=== PATIENT | male | born 1995 | race Caucasian/White ===

== ENCOUNTER 2016-12-15 21:59 | Emergency (ER) | payer OTHER ==
[2016-12-15 22:05] VITALS: BP 140/85; PULSE 110; TEMP 98; BMI 18.4
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
[2016-12-15] MEDS ORDERED: KETOROLAC TROMETHAMINE 60 MG/2 ML VIAL IM ONE (23:19)
[2016-12-15] MEDS ORDERED: KETOROLAC TROMETHAMINE 60 MG/2 ML VIAL ONE (23:32)
== END 2016-12-15 23:36 | disposition home or self-care (01) ==
LOC: FER 21:59
PROC: 3E0233Z Introduction of Anti-inflammatory into Muscle, Percutaneous Approach (ICD-10-PCS; principal; 2016-12-15)
DX: S16.1XXA Strain of muscle, fascia and tendon at neck level, initial encounter (principal); F17.210 Nicotine dependence, cigarettes, uncomplicated; V43.52XA Car driver injured in collision with other type car in traffic accident, initial encounter; Y93.89 Activity, other specified; Y92.410 Unspecified street and highway as the place of occurrence of the external cause; F32.9 Major depressive disorder, single episode, unspecified
CPT/HCPCS: 71020-TC; 72050-TC; 99282-25

== ENCOUNTER 2016-12-16 15:49 | Emergency (ER) | payer OTHER ==
[2016-12-16 15:57] VITALS: BP 118/85; PULSE 99; TEMP 98.3; BMI 18.4
[2016-12-16] MEDS ORDERED: IBUPROFEN 400 MG TABLET (FP) PO ONE ×2 (16:33→16:38)
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
== END 2016-12-16 18:30 | disposition home or self-care (01) ==
LOC: FER 15:49
DX: S06.0X9D Concussion with loss of consciousness of unspecified duration, subsequent encounter (principal); V43.52XD Car driver injured in collision with other type car in traffic accident, subsequent encounter; W22.10XD Striking against or struck by unspecified automobile airbag, subsequent encounter; Y93.89 Activity, other specified; Y92.414 Local residential or business street as the place of occurrence of the external cause; F32.9 Major depressive disorder, single episode, unspecified; F17.210 Nicotine dependence, cigarettes, uncomplicated
CPT/HCPCS: 70450-TC; 99283-25

== ENCOUNTER 2017-05-01 20:26 | Emergency (ER) | payer OTHER ==
[2017-05-01 20:42] VITALS: TEMP 97.9; BMI 18.4
[2017-05-01 21:02] LABS: MCH 30.2 pg (25.7-33.7); MEAN CELL VOLUME 91.5 fl (80-96); PLATELET COUNT 352 K/MM3 (134-434); RDW 13.3 % (11.9-15.9); WHITE BLOOD COUNT 29.1 K/mm3 (4.0-10.0)
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
[2017-05-01 21:32] LABS: ALBUMIN 4.5 g/dl (3.4-5.0); ANION GAP 18 (8-16); BILIRUBIN,TOTAL 1.1 mg/dL (0.2-1.0); CALCIUM 8.7 mg/dL (8.5-10.1); CO2 16 mmol/L (21-32); CREATININE 1.3 mg/dL (0.7-1.3); GLUCOSE,RANDOM 292 mg/dL (74-106); MAGNESIUM 2.3 mg/dL (1.8-2.4); SGOT/AST 14 U/L (15-37); SGPT/ALT 27 U/L (12-78); TOT PROT 8.4 g/dl (6.4-8.2)
[2017-05-01 21:33] LABS: ALK PHOS 84 U/L (45-117)
[2017-05-01 21:52] LABS: PLATELET ESTIMATE ADEQUATE (NORMAL); TOTAL CELLS COUNTED 100
[2017-05-01] MEDS ORDERED: SODIUM CHLORIDE 0.9% 500 ML INFUS.BAG IV ONE (22:13)
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
--- NOTE | 2017-05-02 00:52 | PDOC ---
*Physical Exam - Vital Signs Last Vital Signs Temp Pulse Resp BP Pulse Ox 97.9 F 121 H 20 123/83 95 05/01/17 20:26 05/01/17 20:26 05/01/17 20:26 05/01/17 20:26 05/01/17 20:26 ED Treatment Course - LABORATORY CBC & Chemistry Diagram: 05/01/17 20:43 05/01/17 20:43 - ADDITIONAL ORDERS Additional order review: Laboratory Results 05/01/17 20:43 Sodium 138 Potassium 5.0 D Chloride 104 Carbon Dioxide 16 L D Anion Gap 18 H BUN 13 Creatinine 1.3 D Creat Clearance w eGFR > 60 Random Glucose 292 H D Calcium 8.7 Magnesium 2.3 Total Bilirubin 1.1 H D AST 14 L D ALT 27 Alkaline Phosphatase 84 D Total Protein 8.4 H Albumin 4.5 05/01/17 20:43 RBC 4.99 MCV 91.5 MCHC 33.0 RDW 13.3 MPV 9.0 Neutrophils % No Result Required. Lymphocytes % No Result Required. - Medications Given in the ED: ED Medications Discontinued Medications Generic Name Dose Route Start Last Admin Trade Name Freq PRN Reason Stop Dose Admin Sodium Chloride 1,000 ml 05/01/17 22:13 05/01/17 22:34 Normal Saline - IV 05/01/17 22:14 1,000 ml ONCE ONE Administration *DC/Admit/Observation/Transfer Diagnosis at time of Disposition: Heroin use - Discharge Dispostion Disposition: HOME Condition at time of disposition: Improved - Patient Instructions Printed Discharge Instructions: DI for Drug Overdose in Adults Additional Instructions: Please refrain from heroin use [facility] is located on [address] [place] [address]
[2017-05-02 01:16] VITALS: BP 133/78; PULSE 889
[2017-05-02 01:22] LABS: URINE MARIJUANA THC POSITIVE ng/ml (CUTOFF=50)
--- NOTE | 2017-05-02 10:01 | EKG ---
Test Reason : Blood Pressure : / mmHG Vent. Rate : 110 BPM Atrial Rate : 110 BPM P-R Int : 164 ms QRS Dur : 104 ms QT Int : 362 ms P-R-T Axes : 077 118 061 degrees QTc Int : 489 ms SINUS TACHYCARDIA POSSIBLE LEFT ATRIAL ENLARGEMENT RIGHT AXIS DEVIATION ABNORMAL ECG WHEN COMPARED WITH ECG OF 12-MAR-2015 08:32, NO SIGNIFICANT CHANGE WAS FOUND Confirmed by SHANNON THOMPSON MD ([id number]) on 05/02/2017 10:01:25 AM Referred By: Confirmed By:SHANNON THOMPSON MD
== END 2017-05-02 01:18 | disposition home or self-care (01) ==
LOC: JER 20:26
DX: F11.10 Opioid abuse, uncomplicated (principal); F41.8 Other specified anxiety disorders; F17.210 Nicotine dependence, cigarettes, uncomplicated
CPT/HCPCS: 36415; 80053; 80307; 83735; 85025; 93005; 93010; 99285-25

== ENCOUNTER 2018-11-19 10:43 | Inpatient (IN) | payer OTHER ==
[2018-11-19 12:11] VITALS: BMI 19.1
--- NOTE | 2018-11-19 12:18 | HP ---
COWS - Scale Resting Pulse: 0= OK 80 or Below Sweatin= Chills/Flushing Restless Observation: 1= Difficult to Sit Still Pupil Size: 1= Pupils >than Normal Bone or Joint Aches: 2= Severe Diffuse Aches Runny Nose/ Eye Tearin= Runny Nose/Eyes GI Upset > 30mins: 2= Nausea/Diarrhea Tremor Observation: 2= Slight Tremor Visible Yawning Observation: 2= >3x During Session Anxiety or Irritability: 2=Irritable/Anxious Goose Flesh Skin: 0=Smooth Skin COWS Score: 15 CIWA Score - Admission Criteria [facility] Guidelines: Admission for Medically Managed Detox: Requires at least one of the followin. CIWA greater than 12 2. Seizures within the past 24 hours 3. Delirium tremens within the past 24 hours 4. Hallucinations within the past 24 hours 5. Acute intervention needed for co occurring medical disorder 6. Acute intervention needed for co occurring psychiatric disorder 7. Severe withdrawal that cannot be handled at a lower level of care (continued vomiting, continued diarrhea, abnormal vital signs) requiring intravenous medication and/or fluids 8. Admission ROS S - HPI Chief Complaint: i need help to stop using heroin and marijuana Allergies/Adverse Reactions: Allergies Allergy/AdvReac Type Severity Reaction Status Date / Time No Known Drug Allergies Allergy Verified 11/19/18 13:06 History of Present Illness: this 23 years old male with heroin dependence and cocaine abused,seeking detox, withdrawal symptom nicotine dependence 30 cigarette/day,nicotine replacement patch and gum weight loss bipolar disorder,anxiety and depression,no medication plan ofr rehab after detox Exam Limitations: No Limitations - Ebola screening Have you traveled outside of the country in the last 21 days: No Have you had contact with anyone from an Ebola affected area: No Do you have a fever: No - Review of Systems Constitutional: Chills, Loss of Appetite, Malaise, Night Sweats, Changes in sleep, Unintentional Wgt. Loss EENT: reports: Tearing, Nose Congestion Respiratory: reports: No Symptoms reported Cardiac: reports: No Symptoms Reported GI: reports: Diarrhea, Nausea, Poor Appetite : reports: No Symptoms Reported Integumentary: reports: Dryness Neuro: reports: Headache, Tremors Endocrine: reports: No Symptoms Reported Hematology: reports: No Symptoms Reported Psychiatric: reports: No Sypmtoms Reported, Judgement Intact, Mood/Affect Appropiate, Orientated x3, other (bipolar disorder,anxiety,depression) Other Systems: Reviewed and Negative Patient History - Patient Medical History Hx Anemia: No Hx Asthma: No Hx Chronic Obstructive Pulmonary Disease (COPD): No Hx Cancer: No Hx Cardiac Disorders: No Hx Congestive Heart Failure: No Hx Hypertension: No Hx Hypercholesterolemia: No Hx Pacemaker: No HX Cerebrovascular Accident: No Hx Seizures: No Hx Dementia: No Hx Diabetes: No Hx Gastrointestinal Disorders: No Hx Liver Disease: No Hx Genitourinary Disorders: No Hx Sexually Transmitted Disorders: No Hx Renal Disease (ESRD): No Hx Thyroid Disease: No Hx Human Immunodeficiency Virus (HIV): No (last 04/27 negative) Hx Hepatitis C: No Hx Depression: Yes Hx Suicide Attempt: Yes (cutter at age 18 years) Hx Bipolar Disorder: Yes (no med) Hx Schizophrenia: No Other Medical History: no suicidal,no homicidal - Patient Surgical History Past Surgical History: No - PPD History Previous Implant?: Yes Documented Results: Negative w/o proof Implanted On Prior [facility] Admission?: No PPD to be Administered?: Yes - Smoking Cessation Smoking history: Current every day smoker Have you smoked in the past 12 months: Yes Aproximately how many cigarettes per day: 20 Hx Chewing Tobacco Use: No Initiated information on smoking cessation: Yes 'Breaking Loose' booklet given: 11/19/18 - Substance & Tx. History Hx Alcohol Use: No Hx Substance Use: Yes Substance Use Type: Cocaine, Heroin Hx Substance Use Treatment: No - Substances abused Heroin Substance route: Injection Frequency: Daily Amount used: 5 bags Age of first use: 20 Date of last use: 11/18/18 Cocaine Other (specify): sniff Frequency: 1-3 times last 30 days Amount used: 20$ Age of first use: 16 Date of last use: 11/13/18 Family Disease History - Family Disease History Family Disease History: Other: Father (etoh), Mother (etoh) Admission Physical Exam [facility] - Vital Signs Vital Signs: Vital Signs - 24 hr 11/19/18 12:10 Temperature 97.8 F Pulse Rate 73 Respiratory 18 Rate Blood Pressure 110/75 - Physical General Appearance: Yes: Moderate Distress, Tremorous, Irritable, Sweating, Anxious HEENTM: Yes: Normal ENT Inspection, Pharynx Normal Respiratory: Yes: Lungs Clear, Normal Breath Sounds, No Respiratory Distress Neck: Yes: Within Normal Limits, Supple, Trachea in good position Breast: Yes: Within Normal Limits Cardiology: Yes: Within Normal Limits, Regular Rhythm, Regular Rate, S1, S2 Abdominal: Yes: Within Normal Limits, Normal Bowel Sounds, Non Tender, Flat, Soft Genitourinary: Yes: Within Normal Limits Back: Yes: Muscle Spasm Musculoskeletal: Yes: full range of Motion, Back pain, Joint Stiffness, Muscle Pain Extremities: Yes: Within Normal Limits, Normal Range of Motion, Tremors Neurological: Yes: experimental 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 II-XII NML intact, Alert, Motor Strength 5/5 Integumentary: Yes: Dry, Track Gonzalez Lymphatic: Yes: Within Normal Limits - Diagnostic (1) Opioid dependence with withdrawal Current Visit: Yes Status: Acute (2) Cocaine abuse Current Visit: Yes Status: Acute (3) Nicotine dependence Current Visit: Yes Status: Acute (4) Weight loss Current Visit: Yes Status: Acute (5) Bipolar disorder Current Visit: Yes Status: Acute (6) Insomnia secondary to depression with anxiety Current Visit: Yes Status: Acute Cleared for Admission [facility] - Detox or Rehab [facility] Level of Care: Medically Managed Detox Regimen/Protocol: Methadone Breathalyzer - Breathalyzer Breathalyzer: 0 Urine Drug Screen - Test Device Lot number: [id number] Expiration date: 08/10/20 - Control Is test valid?: Yes - Results Drug screen NEGATIVE: No Urine drug screen results: RILEY-Cocaine, FEN-Fentanyl, MOP-Opiates, OXY-Oxycodone Inpatient Rehab Admission - Rehab Decision to Admit Inpatient rehab admission?: No
[2018-11-19] MEDS ORDERED: cloNIDine HCL 0.1 MG TABLET PO PRN (12:37)
[2018-11-19] MEDS ORDERED: BISMUTH SUBSALICYLATE 524 MG/30 ML UD PO PRN (12:39)
[2018-11-19] MEDS ORDERED: MAG HYDROX/AL HYDROX/SIMETH 30 ML UNIT-DOSE CUP PO PRN (12:39)
[2018-11-19] MEDS ORDERED: MAGNESIUM HYDROX 2400MG/30ML ORAL SUSPENSION 30 ML CUP PO PRN (12:39)
[2018-11-19] MEDS ORDERED: ACETAMINOPHEN 325 MG TABLET (FP) PO PRN ×2 (12:39)
[2018-11-19] MEDS ORDERED: MENTHOL/PHENOL 1 EACH UD MM PRN (12:39)
[2018-11-19] MEDS ORDERED: hydrOXYzine PAMOATE 25 MG CAPSULE (FP) PO PRN (12:39)
[2018-11-19] MEDS ORDERED: MAGNESIUM CITRATE 300 ML BOTTLE PO PRN (12:39)
[2018-11-19] MEDS ORDERED: NICOTINE POLACRILEX 2 MG GUM BUC PRN (12:39)
[2018-11-19] MEDS ORDERED: METHADONE HCL 10 MG TABLET (FOR DETOX USE ONLY) PO ONE ×2 (14:00→23:00)
[2018-11-19] MEDS: METHOCARBAMOL 500 MG TABLET PO PRN (14:34)
[2018-11-19] MEDS: diazePAM 5 MG TABLET PO PRN ×2 (14:34→19:06)
[2018-11-19] MEDS: NICOTINE 21 MG/24 HOURS TOPICAL PATCH TD SCH (14:38)
[2018-11-19] MEDS: IBUPROFEN 400 MG TABLET (FP) PO PRN (19:06)
[2018-11-19] MEDS: THIAMINE HCL 100 MG TABLET (FP) PO SCH (22:27)
[2018-11-19] MEDS: MELATONIN 5 MG TABLETS PO PRN (22:27)
[2018-11-20] MEDS: IBUPROFEN 400 MG TABLET (FP) PO PRN (01:34)
[2018-11-20] MEDS: diazePAM 5 MG TABLET PO PRN ×5 (01:34→22:17)
[2018-11-20] MEDS: METHOCARBAMOL 500 MG TABLET PO PRN ×3 (07:03→22:17)
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
[2018-11-20 09:58] LABS: ALBUMIN 3.7 g/dl (3.4-5.0); BILIRUBIN,TOTAL 0.5 mg/dL (0.2-1); CALCIUM 9.1 mg/dL (8.5-10.1); CREATININE 0.8 mg/dL (0.55-1.3); POTASSIUM 4.6 mmol/L (3.5-5.1); TOT PROT 7.5 g/dl (6.4-8.2)
[2018-11-20] MEDS ORDERED: METHADONE HCL 10 MG TABLET (FOR DETOX USE ONLY) PO ONE (10:00)
[2018-11-20 10:05] LABS: HEMATOCRIT 39.3 % (35.4-49); HEMOGLOBIN 12.8 GM/dL (11.7-16.9); MCH 27.8 pg (25.7-33.7); MCHC 32.6 g/dl (32.0-35.9); MEAN CELL VOLUME 85.5 fl (80-96); MEAN PLT VOLUME 8.7 fl (7.5-11.1); PLATELET COUNT 196 K/MM3 (134-434); RDW 17.2 % (11.9-15.9); WHITE BLOOD COUNT 4.5 K/mm3 (4.0-10.0)
[2018-11-20] MEDS: PRENATAL VITAMINS W/ FOLIC ACID TABLET (FP) PO SCH (10:43)
[2018-11-20] MEDS: NICOTINE 21 MG/24 HOURS TOPICAL PATCH TD SCH (10:44)
[2018-11-20] MEDS: hydrOXYzine PAMOATE 50 MG CAPSULE (FP) PO PRN ×2 (10:46→22:17)
--- NOTE | 2018-11-20 14:39 | PN ---
BHS COWS - Scale Resting Pulse: 1= [place] 81-100 Sweatin= Chills/Flushing Restless Observation: 1= Difficult to Sit Still Pupil Size: 0= Normal to Room Light Bone or Joint Aches: 2= Severe Diffuse Aches Runny Nose/ Eye Tearin= None GI Upset > 30mins: 0= None Tremor Observation of Outstretched Hands: 0= None Yawning Observation: 1= 1-2x During Session Anxiety or Irritability: 1=Feels Anxious/Irritable Goose Flesh Skin: 3=Piloerection COWS Score: 10 BHS Progress Note (SOAP) Subjective: Body Aches, Interrupted Sleep, Poor Appetite, Anxious. Objective: PATIENT A & O X 3, OBSERVED AMBULATING ON UNIT UNASSISTED. IN NO ACUTE DISTRESS. 11/20/18 14:37 Vital Signs Temperature 96.4 F L 11/20/18 13:18 Pulse Rate 74 11/20/18 13:18 Respiratory Rate 18 11/20/18 13:18 Blood Pressure 132/78 11/20/18 13:18 O2 Sat by Pulse Oximetry (%) Laboratory Tests 11/20/18 11/20/18 11/20/18 07:40 07:40 07:40 WBC 4.5 RBC 4.60 Hgb 12.8 Hct 39.3 MCV 85.5 MCH 27.8 MCHC 32.6 RDW 17.2 H Plt Count 196 D MPV 8.7 Sodium 139 Potassium 4.6 Chloride 105 Carbon Dioxide 30 Anion Gap 5 L BUN 16 Creatinine 0.8 Est GFR (CKD-EPI)AfAm 145.93 Est GFR (CKD-EPI)NonAf 125.91 Random Glucose 86 Calcium 9.1 Total Bilirubin 0.5 AST 348 H ALT 475 H Alkaline Phosphatase 147 H Total Protein 7.5 Albumin 3.7 RPR Titer Nonreactive HIV 1&2 Antibody Screen HIV P24 Antigen 11/20/18 07:40 WBC RBC Hgb Hct MCV MCH MCHC RDW Plt Count MPV Sodium Potassium Chloride Carbon Dioxide Anion Gap BUN Creatinine Est GFR (CKD-EPI)AfAm Est GFR (CKD-EPI)NonAf Random Glucose Calcium Total Bilirubin AST ALT Alkaline Phosphatase Total Protein Albumin RPR Titer HIV 1&2 Antibody Screen Negative HIV P24 Antigen Negative LABS NOTED. Assessment: 11/20/18 14:38 WITHDRAWAL SYMPTOMS. ELEVATED LIVER ENZYMES. Plan: CONTINUE DETOX. INCREASE DAILY PO FLUID / WATER INTAKE. HFP ON 11/22/2018 FOR ELEAVTED ADMISSION AST, ALT, AND AP LEVELS.
--- NOTE | 2018-11-20 15:10 | EKG ---
Test Reason : Blood Pressure : / mmHG Vent. Rate : 065 BPM Atrial Rate : 065 BPM P-R Int : 130 ms QRS Dur : 100 ms QT Int : 416 ms P-R-T Axes : 000 115 069 degrees QTc Int : 432 ms NORMAL SINUS RHYTHM RIGHT AXIS DEVIATION POSSIBLE RIGHT VENTRICULAR HYPERTROPHY ABNORMAL ECG WHEN COMPARED WITH ECG OF 01-MAY-2017 21:09, VENT. RATE HAS DECREASED BY 45 BPM Confirmed by JAY PLUNKETT, SHANNON ([id number]) on 11/20/2018 3:10:08 PM Referred By: Confirmed By:SHANNON THOMPSON MD
[2018-11-20] MEDS: THIAMINE HCL 100 MG TABLET (FP) PO SCH (22:17)
[2018-11-21] MEDS: MELATONIN 5 MG TABLETS PO PRN (00:01)
--- NOTE | 2018-11-21 09:44 | PN ---
S COWS - Scale Resting Pulse: 0= ME 80 or Below Sweatin= Chills/Flushing Restless Observation: 1= Difficult to Sit Still Pupil Size: 1= Pupils >than Normal Bone or Joint Aches: 2= Severe Diffuse Aches Runny Nose/ Eye Tearin= Nasal Congestion GI Upset > 30mins: 2= Nausea/Diarrhea Tremor Observation of Outstretched Hands: 2= Slight Tremor Visible Yawning Observation: 1= 1-2x During Session Anxiety or Irritability: 2=Irritable/Anxious Goose Flesh Skin: 0=Smooth Skin COWS Score: 13 BHS Progress Note (SOAP) Subjective: alert,irritable,anxious,interrupted sleep,tremor,pain in the body and back Objective: 11/21/18 09:43 Vital Signs Temperature 97.2 F L 11/21/18 09:23 Pulse Rate 63 11/21/18 09:23 Respiratory Rate 18 11/21/18 09:23 Blood Pressure 121/67 11/21/18 09:23 O2 Sat by Pulse Oximetry (%) Laboratory Last Values WBC 4.5 K/mm3 (4.0-10.0) 11/20/18 07:40 RBC 4.60 M/mm3 (4.00-5.60) 11/20/18 07:40 Hgb 12.8 GM/dL (11.7-16.9) 11/20/18 07:40 Hct 39.3 % (35.4-49) 11/20/18 07:40 MCV 85.5 fl (80-96) 11/20/18 07:40 MCH 27.8 pg (25.7-33.7) 11/20/18 07:40 MCHC 32.6 g/dl (32.0-35.9) 11/20/18 07:40 RDW 17.2 % (11.9-15.9) H 11/20/18 07:40 Plt Count 196 K/MM3 (134-434) D 11/20/18 07:40 MPV 8.7 fl (7.5-11.1) 11/20/18 07:40 Sodium 139 mmol/L (136-145) 11/20/18 07:40 Potassium 4.6 mmol/L (3.5-5.1) 11/20/18 07:40 Chloride 105 mmol/L (98-107) 11/20/18 07:40 Carbon Dioxide 30 mmol/L (21-32) 11/20/18 07:40 Anion Gap 5 MMOL/L (8-16) L 11/20/18 07:40 BUN 16 mg/dL (7-18) 11/20/18 07:40 Creatinine 0.8 mg/dL (0.55-1.3) 11/20/18 07:40 Est GFR (CKD-EPI)AfAm 145.93 11/20/18 07:40 Est GFR (CKD-EPI)NonAf 125.91 11/20/18 07:40 Random Glucose 86 mg/dL (74-106) 11/20/18 07:40 Calcium 9.1 mg/dL (8.5-10.1) 11/20/18 07:40 Total Bilirubin 0.5 mg/dL (0.2-1) 11/20/18 07:40 AST 348 U/L (15-37) H 11/20/18 07:40 ALT 475 U/L (13-61) H 11/20/18 07:40 Alkaline Phosphatase 147 U/L (45-117) H 11/20/18 07:40 Total Protein 7.5 g/dl (6.4-8.2) 11/20/18 07:40 Albumin 3.7 g/dl (3.4-5.0) 11/20/18 07:40 RPR Titer Nonreactive (NONREACTIVE) 11/20/18 07:40 HIV 1&2 Antibody Screen Negative 11/20/18 07:40 HIV P24 Antigen Negative 11/20/18 07:40 Assessment: 11/21/18 09:44 withdrawal symptom Plan: continue detox,d/c tylenol for elevation of alt,ast,repeat hepatic function,inr in am
[2018-11-21] MEDS ORDERED: METHADONE HCL 10 MG TABLET (FOR DETOX USE ONLY) PO ONE (10:00)
[2018-11-21] MEDS: PRENATAL VITAMINS W/ FOLIC ACID TABLET (FP) PO SCH (10:22)
[2018-11-21] MEDS: diazePAM 5 MG TABLET PO PRN ×3 (10:23→22:13)
[2018-11-21] MEDS: NICOTINE 21 MG/24 HOURS TOPICAL PATCH TD SCH (10:23)
[2018-11-21] MEDS: hydrOXYzine PAMOATE 50 MG CAPSULE (FP) PO PRN (12:12)
[2018-11-21 12:27] LABS: URINE APPEARANCE CLEAR; URINE BILIRUBIN NEGATIVE (NEGATIVE); URINE COLOR YELLOW; URINE GLUCOSE (UA) NEGATIVE (NEGATIVE); URINE KETONE NEGATIVE (NEGATIVE); URINE LEUK ESTERASE NEGATIVE (NEGATIVE); URINE NITRITE NEGATIVE (NEGATIVE); URINE PROTEIN NEGATIVE (NEGATIVE); URINE UROBILINOGEN 0.2 mg/dL (0.2-1.0)
[2018-11-21] MEDS: METHOCARBAMOL 500 MG TABLET PO PRN (17:02)
[2018-11-21] MEDS: THIAMINE HCL 100 MG TABLET (FP) PO SCH (22:13)
[2018-11-22] MEDS: diazePAM 5 MG TABLET PO PRN ×2 (06:12→10:18)
[2018-11-22] MEDS ORDERED: METHADONE HCL 5 MG TABLET (FOR DETOX USE ONLY) ONE (09:37)
[2018-11-22] MEDS ORDERED: METHADONE HCL 10 MG TABLET (FOR DETOX USE ONLY) ONE (09:38)
[2018-11-22 10:00] LABS: ALBUMIN 3.7 g/dl (3.4-5.0); BILIRUBIN,DIRECT 0.2 mg/dL (0.0-0.2); BILIRUBIN,TOTAL 0.3 mg/dL (0.2-1); TOT PROT 7.4 g/dl (6.4-8.2)
[2018-11-22] MEDS ORDERED: METHADONE HCL 10 MG TABLET (FOR DETOX USE ONLY) PO ONE (10:00)
[2018-11-22] MEDS ORDERED: METHADONE (DETOX) 10 MG, METHADONE (DETOX) 5 MG PO ONE (10:00)
[2018-11-22] MEDS: PRENATAL VITAMINS W/ FOLIC ACID TABLET (FP) PO SCH (10:17)
[2018-11-22] MEDS: NICOTINE 21 MG/24 HOURS TOPICAL PATCH TD SCH (10:18)
[2018-11-22 10:19] LABS: INR 0.97 (0.83-1.09); PROTHROMBIN TIME (PATIENT) 11.5 SEC (9.7-13.0)
--- NOTE | 2018-11-22 14:44 | PN ---
BHS COWS - Scale Resting Pulse: 2= [place] 101-120 Sweatin= Chills/Flushing Restless Observation: 1= Difficult to Sit Still Pupil Size: 0= Normal to Room Light Bone or Joint Aches: 1= Mild Discomfort Runny Nose/ Eye Tearin= None GI Upset > 30mins: 1= Stomach Cramp Tremor Observation of Outstretched Hands: 0= None Yawning Observation: 1= 1-2x During Session Anxiety or Irritability: 4=Extreme Anxiety Goose Flesh Skin: 0=Smooth Skin COWS Score: 11 BHS Progress Note (SOAP) Subjective: Body Aches, Anxious, Stomach Cramping. Objective: PATIENT A & O X 3, OBSERVED AMBULATING ON UNIT UNASSISTED. IN NO ACUTE DISTRESS. 11/22/18 14:39 Vital Signs Temperature 97.2 F L 11/22/18 13:15 Pulse Rate 105 H 11/22/18 13:15 Respiratory Rate 20 11/22/18 13:15 Blood Pressure 121/60 11/22/18 13:15 O2 Sat by Pulse Oximetry (%) Laboratory Tests 11/20/18 11/20/18 11/20/18 07:40 07:40 07:40 WBC 4.5 RBC 4.60 Hgb 12.8 Hct 39.3 MCV 85.5 MCH 27.8 MCHC 32.6 RDW 17.2 H Plt Count 196 D MPV 8.7 PT with INR INR Sodium 139 Potassium 4.6 Chloride 105 Carbon Dioxide 30 Anion Gap 5 L BUN 16 Creatinine 0.8 Est GFR (CKD-EPI)AfAm 145.93 Est GFR (CKD-EPI)NonAf 125.91 Random Glucose 86 Calcium 9.1 Total Bilirubin 0.5 Direct Bilirubin AST 348 H ALT 475 H Alkaline Phosphatase 147 H Total Protein 7.5 Albumin 3.7 Urine Color Urine Appearance Urine pH Ur Specific [place] Urine Protein Urine Glucose (UA) Urine Ketones Urine Blood Urine Nitrite Urine Bilirubin Urine Urobilinogen Ur Leukocyte Esterase RPR Titer Nonreactive HIV 1&2 Antibody Screen HIV P24 Antigen 11/20/18 11/21/18 11/22/18 07:40 07:30 07:00 WBC RBC Hgb Hct MCV MCH MCHC RDW Plt Count MPV PT with INR INR Sodium Potassium Chloride Carbon Dioxide Anion Gap BUN Creatinine Est GFR (CKD-EPI)AfAm Est GFR (CKD-EPI)NonAf Random Glucose Calcium Total Bilirubin 0.3 Direct Bilirubin 0.2 AST 412 H ALT 578 H Alkaline Phosphatase 137 H Total Protein 7.4 Albumin 3.7 Urine Color Yellow Urine Appearance Clear Urine pH 7.0 Ur Specific [place] 1.009 L Urine Protein Negative Urine Glucose (UA) Negative Urine Ketones Negative Urine Blood Negative Urine Nitrite Negative Urine Bilirubin Negative Urine Urobilinogen 0.2 Ur Leukocyte Esterase Negative RPR Titer HIV 1&2 Antibody Screen Negative HIV P24 Antigen Negative 11/22/18 07:00 WBC RBC Hgb Hct MCV MCH MCHC RDW Plt Count MPV PT with INR 11.50 INR 0.97 Sodium Potassium Chloride Carbon Dioxide Anion Gap BUN Creatinine Est GFR (CKD-EPI)AfAm Est GFR (CKD-EPI)NonAf Random Glucose Calcium Total Bilirubin Direct Bilirubin AST ALT Alkaline Phosphatase Total Protein Albumin Urine Color Urine Appearance Urine pH Ur Specific [place] Urine Protein Urine Glucose (UA) Urine Ketones Urine Blood Urine Nitrite Urine Bilirubin Urine Urobilinogen Ur Leukocyte Esterase RPR Titer HIV 1&2 Antibody Screen HIV P24 Antigen LABS NOTED. SLIGHT IMPROVEMENT NOTED IN AP LEVEL. INCREASE IN AST AND ALT LEVELS NOTED ON REPEAT ASSESSMENT. 11/22/18 14:41 Assessment: 11/22/18 14:39 WITHDRAWAL SYMPTOMS. ELEVATED LIVER ENZYMES. 11/22/18 14:41 Plan: CONTINUE DETOX. INCREASE DAILY PO FLUID / WATER INTAKE. PATIENT MADE AWARE OF ELEVATED LIVER ENZYME LEVELS NOTED ON DETOX ADMISSION AND ON REPEAT ASSESSMENT. PATIENT ADVISED TO FOLLOW-UP WITH VISUAL STYLIST WHEN POSSIBLE AFTER DISCHARGE FROM DETOX UNIT FOR GENERAL MEDICAL ASSESSMENT AND FOR ELEVATED LIVER ENZYMES NOTED ON DETOX ADMISSION LABORATORY ASSESSMENT. PATIENT VERBALIZED UNDERSTANDING OF RECOMMENDATION.
--- NOTE | 2018-11-22 15:52 | PN ---
LOVE Progress Note Note: AFTER DISCUSSION ABOUT RESULTS OF ADMISSION AND REPEAT LIVER ENZYMES, AT PATIENT 'S REQUEST, HEP C AB TEST ORDERED. Mulugeta VICENTE NP
[2018-11-22] MEDS: hydrOXYzine PAMOATE 50 MG CAPSULE (FP) PO PRN ×2 (17:04→22:14)
[2018-11-22] MEDS: METHOCARBAMOL 500 MG TABLET PO PRN (17:04)
[2018-11-22] MEDS: IBUPROFEN 400 MG TABLET (FP) PO PRN (17:04)
[2018-11-22] MEDS: THIAMINE HCL 100 MG TABLET (FP) PO SCH (22:14)
[2018-11-22] MEDS: MELATONIN 5 MG TABLETS PO PRN (22:14)
[2018-11-23] MEDS ORDERED: METHADONE HCL 10 MG TABLET (FOR DETOX USE ONLY) PO ONE ×2 (01:00→10:00)
[2018-11-23] MEDS ORDERED: METHADONE HCL 5 MG TABLET (FOR DETOX USE ONLY) PO ONE (06:00)
[2018-11-23] MEDS: hydrOXYzine PAMOATE 50 MG CAPSULE (FP) PO PRN ×2 (09:20→19:32)
[2018-11-23] MEDS: PRENATAL VITAMINS W/ FOLIC ACID TABLET (FP) PO SCH (10:18)
[2018-11-23] MEDS: NICOTINE 21 MG/24 HOURS TOPICAL PATCH TD SCH (10:19)
--- NOTE | 2018-11-23 14:13 | PN ---
S Progress Note (SOAP) Subjective: alert,irritable,anxious,interrupted sleep, Objective: 11/23/18 14:09 Vital Signs Temperature 97.5 F L 11/23/18 10:15 Pulse Rate 77 11/23/18 10:15 Respiratory Rate 18 11/23/18 10:15 Blood Pressure 130/84 11/23/18 10:15 O2 Sat by Pulse Oximetry (%) Assessment: 11/23/18 14:09 withdrawal symptom Plan: continue detox,discharge in am
[2018-11-23] MEDS: METHOCARBAMOL 500 MG TABLET PO PRN (19:32)
[2018-11-23] MEDS: THIAMINE HCL 100 MG TABLET (FP) PO SCH (22:38)
[2018-11-24] MEDS: hydrOXYzine PAMOATE 50 MG CAPSULE (FP) PO PRN ×2 (05:49→10:17)
[2018-11-24] MEDS ORDERED: METHADONE HCL 5 MG TABLET (FOR DETOX USE ONLY) PO ONE (06:00)
[2018-11-24 09:07] VITALS: BP 100/77; PULSE 100; TEMP 97.7
[2018-11-24] MEDS: PRENATAL VITAMINS W/ FOLIC ACID TABLET (FP) PO SCH (10:17)
[2018-11-24] MEDS: NICOTINE 21 MG/24 HOURS TOPICAL PATCH TD SCH (10:17)
== END 2018-11-24 11:18 | disposition home or self-care (01) | DRG 773 ==
LOC: YASAS 10:43 → Y6N 13:18
PROVIDERS: ADMIT Surgery; ATTEND Surgery
PROC: HZ2ZZZZ Detoxification Services for Substance Abuse Treatment (ICD-10-PCS; principal; 2018-11-19)
DX: F11.23 Opioid dependence with withdrawal (principal); F14.10 Cocaine abuse, uncomplicated; F17.210 Nicotine dependence, cigarettes, uncomplicated; F19.280 Other psychoactive substance dependence with psychoactive substance-induced anxiety disorder; F19.282 Other psychoactive substance dependence with psychoactive substance-induced sleep disorder; F31.9 Bipolar disorder, unspecified; F51.05 Insomnia due to other mental disorder; R94.5 Abnormal results of liver function studies; R63.4 Abnormal weight loss
CPT/HCPCS: 36415; 80053; 80076; 81003; 85027; 85610; 86593; 86803; 87389; 93005; 93010; J0735

== ENCOUNTER 2020-03-25 22:50 | Emergency (ER) | payer OTHER ==
--- OUTSIDE RECORDS SUMMARY | 2020-03-25 22:55 | XMS ---
:1995 [facility] Care Team Providers Name Role Phone TITI RILEY MD Unavailable Unavailable Raul, Jessica Unavailable Unavailable Raul, C Unavailable Unavailable Raul, C Unavailable Unavailable Raul, C Unavailable Unavailable Re-disclosure Warning The records that you are about to access may contain information from federally- assisted alcohol or drug abuse programs. If such information is present, then the following federally mandated warning applies: This information has been disclosed to you from records protected by federal confidentiality rules (42 CFR part 2). The federal rules prohibit you from making any further disclosure of this information unless further disclosure is expressly permitted by the written consent of the person to whom it pertains or as otherwise permitted by 42 CFR part 2. A general authorization for the release of medical or other information is NOT sufficient for this purpose. The Federal rules restrict any use of the information to criminally investigate or prosecute any alcohol or drug abuse patient.The records that you are about to access may contain highly sensitive health information, the redisclosure of which is protected by Article 27-F of the [facility] Public Health law. If you continue you may haveaccess to information: Regarding HIV / AIDS; Provided by facilities licensed or operated by the [facility] Office of Mental Health; or Provided by the [facility] Office for People With Developmental Disabilities. If such information is present, then the following [facility] mandated warning applies: This information has been disclosed to you from confidential records which are protected by state law. State law prohibits you from making any further disclosure of this information without the specific written consent of the person to whom it pertains, or as otherwise permitted by law. Any unauthorized further disclosure in violation of state law may result in a fine or retirement sentence or both. A general authorization for the release of medical or other information is NOT sufficient authorization for further disclosure. Encounters Encounter Providers Location Date Indications Data Source(s ) Emergency H 02/04/2019 [facility] [place] 09:34:00 PM EDT Medical C enter Inpatient Attender: TITI FLAHERTY-1D 11/24/2018 [facility] [place]BNS[place]ANY[place] 03:59:00 PM EDT Hospital : [facility] 11/29/2018 10:39:00 PM EDT Patient discharged. Outpatient [facility] 11/24/2018 12:34:00 PM EDT - [address] [place] [address] 04:36:00 PM EDT Patient discharged. Insurance Providers Payer name Policy type Policy ID Covered Covered constitution party's Policy P ana / Coverage constitution party ID relationship to Nicole Inf ormation type nicole MEDICAID [id number] SP [id number] O SELF PAY 00 Self 00 MEDICAID INP [id number] Self [id number] [facility] [facility] [id number] [place] [id number] PLANS SELF PAY SP INSURANCE [facility] [place] [id number] [place] [id number] COMM PLAN Problems, Conditions, and Diagnoses Code Display Name Description Problem Type Effective Data Sour ce(s) Dates Z72.0 Tobacco use TOBACCO USE Diagnosis 02/04/2019 [facility] EDT R07.89 Other chest pain OTHER CHEST PAIN Diagnosis 02/04/2019 [facility] 09:34:00 PM Medical Cente r EDT R07.9 Chest pain, CHEST PAIN, Diagnosis 02/04/2019 [facility] unspecified UNSPECIFIED 09:34:[address] EDT F11.20 Opioid dependence, Opioid dependence, Diagnosis 9 [facility] uncomplicated uncomplicated 12:35:00 PM Hospita l EDT Results ID Date Data Source HematologyRou.[id number] 02/04/2019 10:05:00 PM EDT [facility] 0400 Name Value Range Interpretation Description Data Sup porting Code Source(s) Document(s ) Hematocrit 41.0-53. <content [facility] [Volume 0 styleCode="[place] [place] Fraction] of ">Hematocrit Medical Blood by </content>42.9 Center Automated count %<content styleCode="Ital ics"> (41.0-53.0 %)</content> Hemoglobin 13.5-17. <content [facility] [Mass/volume] in 5 styleCode="[facility] [place] Blood ">Hemoglobin Medical </content>14.2 Center G/DL<content styleCode="Ital ics"> (13.5-17.5 G/DL)</content> Leukocytes 4.4-11.0 <content [facility] [#/volume] in styleCode="[place]old [place] Blood by ">White Blood Medical Automated count Cell Count Center </content>9.59 KCUMM<content styleCode="Ital ics"> (4.4-11.0 KCUMM)</content > Erythrocytes 4.4-5.9 <content [facility] [#/volume] in styleCode="Bold [place] Blood by ">Red Blood Medical Automated count Cell Count Center </content>5.04 MCUMM<content styleCode="Ital ics"> (4.4-5.9 MCUMM)</content > Erythrocyte 11.5-14. <content [facility] distribution 5 styleCode="[facility]old [place] width [Ratio] by ">Red Cell Medical Automated count Distribution Center Width </content>12.7 %<content styleCode="Ital ics"> (11.5-14.5 %)</content> Erythrocyte mean 32.0-37. <content [facility] corpuscular 0 styleCode="[place]old [place] hemoglobin ">Mean Corpus. Medical concentration Hgb Center [Mass/volume] by Concentration Automated count (MCHC) </content>33.1 G/DL<content styleCode="Ital ics"> (32.0-37.0 G/DL)</content> Erythrocyte mean 80.0-100 <content [facility] corpuscular .0 styleCode="[place]old [place] volume [Entitic ">Mean Medical volume] by Corpuscular Center Automated count Volume </content>85.1 FL<content styleCode="Ital ics"> (80.0-100.0 FL)</content> Platelets 130-400 <content Saint [#/volume] in styleCode="Bold [place] Blood by ">Platelet Medical Automated count Count Center </content>307 KCUMM<content styleCode="Ital ics"> (130-400 KCUMM)</content > Erythrocyte mean 26.0-34. <content [facility] corpuscular 0 styleCode="[place]old [place] hemoglobin ">Mean Medical [Entitic mass] Corposcular Center by Automated Hemoglobin count </content>28.2 PG<content styleCode="Ital ics"> (26.0-34.0 PG)</content> UNK 0 <content Saint styleCode="[facility]old [place] ">Nucleated Red Medical Blood Cell Center </content>0.0 /100<content styleCode="Ital ics"> (0 /100)</content> Platelet mean 8.0-11.0 <content Saint volume [Entitic styleCode="Bold [place] volume] in Blood ">Mean Platelet Medical by Automated Volume Center count </content>10.4 FL<content styleCode="Ital ics"> (8.0-11.0 FL)</content> UNK 0.0 <content Saint styleCode="Bold [place] ">Nucleated Red Medical Blood Cell Center Count </content>0.00 KCUMM<content styleCode="Ital ics"> (0.0 KCUMM)</content > ID Date Data Source GFR(Creatinine).[id number] 02/04/2019 10:05:00 PM EDT [facility] 0-0400 Name Value Range Interpretation Code Description Data Celeste rce(s) Supporting Document(s ) UNK > 60 <content [facility] styleCode="Bold"> Medical Cent er EGFR </content>111 GFR<content styleCode="Italic s"> (> 60 GFR)</content> ID Date Data Source CardiacMarkers.[id number] 02/04/2019 10:05:00 PM EDT [facility] -0400 Name Value Range Interpretation Description Data Sup porting Code Source(s) Document(s ) Troponin < 0.034 <content Saint I.cardiac styleCode="[place] [Mass/volume ">Troponin I Medical ] in Serum </content>< Center or Plasma 0.012 NG/ML<content styleCode="Ital ics"> (< 0.034 NG/ML)</content > ID Date Data Source [id number] 02/04/2019 10:05:00 PM EDT [facility] Name Value Range Interpretation Description Data Sup porting Code Source(s) Document(s ) Sodium 137-145 <content Saint [Moles/volume] styleCode="Tigist [place] in Serum or d">Sodium Medical Plasma </content>142 Center MEQ/L<content styleCode="Ursula lics"> (137-145 MEQ/L)</conten t> Creatinine 0.5-1.3 <content Saint [Mass/volume] styleCode="Tigist [place] in Serum or d">Creatinine Medical Plasma </content>0.9 Center MG/DL<content styleCode="Ursula lics"> (0.5-1.3 MG/DL)</conten t> Potassium <content Saint [Moles/volume] styleCode="Tigist [place] in Serum or d">Potassium Medical Plasma </content>Test Center not performed. MEQ/L (Reference Range: not available)<br/ > Carbon 22-30 <content Saint dioxide, total styleCode="Tigist [place] [Moles/volume] d">Carbon Medical in Serum or Dioxide Center Plasma </content>24 MEQ/L<content styleCode="Ursula lics"> (22-30 MEQ/L)</conten t> UNK 9-20 <content Saint styleCode="Tigist [place] d">BUN Medical </content>14 Center MG/DL<content styleCode="Ursula lics"> (9-20 MG/DL)</conten t> Chloride 98-107 <content Saint [Moles/volume] styleCode="Tigist [place] in Serum or d">Chloride Medical Plasma </content>105 Center MEQ/L<content styleCode="Ursula lics"> (98-107 MEQ/L)</conten t> Calcium 8.4-10.2 <content [facility] [Mass/volume] styleCode="Tigist [place] in Serum or d">Calcium Medical Plasma </content>10.0 Center MG/DL<content styleCode="Ursula lics"> (8.4-10.2 MG/DL)</conten t> UNK > 60 <content Saint styleCode="Tigist [place] d">EGFR Medical </content>111 Center GFR<content styleCode="Ursula lics"> (> 60 GFR)</content> Glucose 74-106 <content Saint [Mass/volume] styleCode="Tigist [place] in Serum or d">Glucose Medical Plasma </content>96 Center MG/DL<content styleCode="Ursula lics"> (74-106 MG/DL)</conten t> Procedure Social History Code Duration Value Status Description Data Source(s ) Smoking 02/04/2019 09:45:00 Daily Smoker completed Daily Smoker [facility] EDT [place] Smoking 02/04/2019 09:37:00 Daily Smoker completed Daily Smoker [facility] EDT Center Vital Signs ID Date Data Source UNK Name Value Range Interpretation Code Description Data Source(s) Body temperature 36.057518 Denise 36.557806 Denise [facility] Respiratory rate 19 /min 19 /min [facility] Oxygen 100 % 100 % [facility] saturation in Medical Arterial blood Center by Pulse oximetry Heart rate 97 /min 97 /min [facility] Diastolic blood 55 mm[Hg] 55 mm[Hg] [facility] Systolic blood 157 mm[Hg] 157 mm[Hg] [facility] Diastolic blood 71 mmHg 71 mmHg [facility] Systolic blood 128 mmHg 128 mmHg [facility] Respiratory rate 18 bpm 18 bpm [facility] Heart rate 77 bpm 77 bpm [facility] Body temperature 98.2 Fahrenheit 98.2 Fahrenhei t [facility] Diastolic blood 68 mmHg 68 mmHg [facility] Systolic blood 120 mmHg 120 mmHg [facility] Respiratory rate 18 bpm 18 bpm [facility] Heart rate 76 bpm 76 bpm [facility] Body temperature 97.0 Fahrenheit 97.0 Fahrenhei t [facility] Diastolic blood 79 mmHg 79 mmHg [facility] Systolic blood 120 mmHg 120 mmHg [facility] Respiratory rate 18 bpm 18 bpm [facility] Heart rate 96 bpm 96 bpm [facility] Body weight 150 lbs 150 lbs [facility] Diastolic blood 68 mmHg 68 mmHg [facility] Systolic blood 110 mmHg 110 mmHg [facility] Respiratory rate 18 bpm 18 bpm [facility] Heart rate 88 bpm 88 bpm [facility] 60 mmHg 60 mmHg [facility] Systolic blood 128 mmHg 128 mmHg [facility] Respiratory rate 20 bpm 20 bpm [facility] Heart rate 102 bpm 102 bpm [facility] Body [facility] 97.6 [facility]
[2020-03-25 23:00] VITALS: BMI 21.1
--- NOTE | 2020-03-25 23:00 | PDOC ---
History of Present Illness - General Chief Complaint: Overdose Stated Complaint: OVERDOSE Time Seen by Provider: 03/25/20 22:59 - History of Present Illness Initial Comments: Jean Pierre Garcia is a 24 y/o male with PMH significant for anxiety, depression, substance use disorder (heroin), BIBEMS today s/p overdose and fall. Per father, he heard a noise in the pt's room and found the pt on the floor. Likely bumped onto fan when he fell. Pt states that he had just injected himself with 1 baggie of heroin. Reports that he has been trying to cut back on his heroin use. Last use on Tuesday. Pt denies headache/vision changes/nausea/vomiting. No chest pain/shortness of breath. No back pain or abdominal pain. No pain over the extremities. No pain on weight bearing. Past History - Medical History Allergies/Adverse Reactions: Allergies Allergy/AdvReac Type Severity Reaction Status Date / Time No Known Drug Allergies Allergy Verified 03/25/20 22:59 Home Medications: Ambulatory Orders NK [No Known Home Medication] 11/19/18 Anemia: No Asthma: No Cancer: No Cardiac Disorders: No CVA: No COPD: No CHF: No Dementia: No Diabetes: No GI Disorders: No Disorders: No HTN: No Hypercholesterolemia: No Liver Disease: No Psychiatric Problems: Yes (depression) Seizures: No Thyroid Disease: No - Psycho-Social/Smoking History Smoking History: Current every day smoker Have you smoked in the past 12 months: Yes Number of Cigarettes Smoked Daily: 12 Information on smoking cessation initiated: No 'Breaking Loose' booklet given: 11/19/18 - Substance Abuse Hx (Audit-C & DAST Scrn) How often the patient has a drink containing alcohol: Monthly or less Number of drinks the patient has on a typical day: 1 or 2 How often the patient has six or more drinks on one occasion: Less than monthly Score: In Men: 4 or > Positive; In Women: 3 or > Positive: 2 Screen Result (Pos requires Nsg. Audit-10AR): Negative In the last yr the pt used illegal drug/Rx for NonMed reason: Yes Score: Yes response is considered Positive: 1 Screen Result (Positive result requires Nsg. DAST-10): Positive Review of Systems - Review of Systems Comments:: GENERAL/CONSTITUTIONAL: No fever or chills. No weakness._ HEAD, EYES, EARS, NOSE AND THROAT: No change in vision. No change in hearing. No sore throat._ CARDIOVASCULAR: No chest pain or shortness of breath_ RESPIRATORY: Denies cough, hemoptysis_ GASTROINTESTINAL: No nausea, vomiting, diarrhea or constipation._ GENITOURINARY: No dysuria, frequency, or change in urination._ MUSCULOSKELETAL: No joint or muscle swelling or pain. No neck or back pain._ SKIN: No rash_ NEUROLOGIC: No headache, vertigo, or change in strength/sensation._ ENDOCRINE: No increased thirst. No abnormal weight change_ HEMATOLOGIC/LYMPHATIC: No anemia, easy bleeding, or history of blood clots._ ALLERGIC/IMMUNOLOGIC: No hives or skin allergy._ *Physical Exam - Vital Signs Last Vital Signs Temp Pulse Resp BP Pulse Ox 98.6 F 132 H 20 157/82 100 03/25/20 22:57 03/25/20 22:57 03/25/20 22:57 03/25/20 22:57 03/25/20 22:57 - Physical Exam GENERAL: Awake, alert, and oriented to person/place/time, in no acute distress_ HEAD: No signs of trauma, normocephalic, atraumatic. No raccoon's eyes or garibay signs. EYES: PERRLA, EOMI, sclera anicteric, conjunctiva clear_ ENT: Hearing grossly normal, nares patent, oropharynx clear without exudates. No uvular deviation. Moist mucosa. No hemotympanum. No nasal deformity or hematoma. No tongue lacerations or bleeding from the oral cavity. NECK: Normal ROM, supple, no lymphadenopathy, JVD, or masses. No c-spine TTP. LUNGS: No distress, speaks in full sentences, clear to auscultation bilaterally _ HEART: Regular rate and rhythm, normal S1 and S2, no murmurs appreciated, peripheral pulses normal and equal bilaterally._ ABDOMEN: Soft, nontender, normoactive bowel sounds. No guarding, no rebound. No masses. No bruising. EXTREMITIES: Normal inspection, Normal range of motion, no edema. No clubbing or cyanosis. No deformity, tenderness, or ecchymosis or lacerations. NEUROLOGICAL: Cranial nerves II through XII grossly intact. Normal speech, normal gait, no focal sensorimotor deficits _ SKIN: Warm, Dry, normal turgor, no rashes or lesions noted_ ED Treatment Course - LABORATORY CBC & Chemistry Diagram: 03/25/20 23:30 03/25/20 23:00 Medical Decision Making - Medical Decision Making 03/25/20 23:00 24M hx of anxiety, depression, and substance use disorder presenting today s/p heroin overdose and fall. -cbc, cmp -ekg -trop -coags -CT head/neck 03/26/20 00:02 EKG shows 138 bpm, sinus tachycardia, right axis deviation, MN 148, QTc 433, no ST elevation/depression, no significant interval change compared to prior 11/2018. 03/26/20 00:08 Pt somnolent but arousable. RR 8-9. Will give 0.05 mg narcan as he is opioid dependent and on suboxone. 03/26/20 01:34 Labs reviewed. Laboratory Last Values WBC 12.1 K/mm3 (4.0-10.0) H 03/25/20 23:30 RBC 4.34 M/mm3 (4.00-5.60) 03/25/20 23:30 Hgb 12.4 GM/dL (11.7-16.9) 03/25/20 23:30 Hct 37.1 % (35.4-49) 03/25/20 23:30 MCV 85.5 fl (80-96) 03/25/20 23:30 MCH 28.7 pg (25.7-33.7) 03/25/20 23:30 MCHC 33.5 g/dl (32.0-35.9) 03/25/20 23:30 RDW 13.6 % (11.9-15.9) D 03/25/20 23:30 Plt Count 312 K/MM3 (134-434) D 03/25/20 23:30 MPV 7.6 fl (7.5-11.1) D 03/25/20 23:30 Absolute Neuts (auto) 10.2 K/mm3 (1.5-8.0) H 03/25/20 23:30 Neutrophils % 83.8 % (42.8-82.8) H 03/25/20 23:30 Lymphocytes % 9.7 % (8-40) 03/25/20 23:30 Monocytes % 5.8 % (3.8-10.2) 03/25/20 23:30 Eosinophils % 0.1 % (0-4.5) D 03/25/20 23:30 Basophils % 0.6 % (0-2.0) 03/25/20 23:30 Nucleated RBC % 0 % (0-0) 03/25/20 23:30 PT with INR 12.40 SEC (9.7-13.0) 03/25/20 23:30 INR 1.05 (0.83-1.09) 03/25/20 23:30 PTT (Actin FS) 33.6 SECONDS (25.2-36.5) 03/25/20 23:30 Sodium 139 mmol/L (136-145) 03/25/20 23:00 Potassium 4.2 mmol/L (3.5-5.1) 03/25/20 23:00 Chloride 103 mmol/L (98-107) 03/25/20 23:00 Carbon Dioxide 31 mmol/L (21-32) 03/25/20 23:00 Anion Gap 5 MMOL/L (8-16) L 03/25/20 23:00 BUN 14.6 mg/dL (7-18) 03/25/20 23:00 Creatinine 1.1 mg/dL (0.55-1.3) 03/25/20 23:00 Est GFR (CKD-EPI)AfAm 108.32 03/25/20 23:00 Est GFR (CKD-EPI)NonAf 93.46 03/25/20 23:00 Random Glucose 105 mg/dL (74-106) 03/25/20 23:00 Calcium 8.9 mg/dL (8.5-10.1) 03/25/20 23:00 Total Bilirubin 0.4 mg/dL (0.2-1) 03/25/20 23:00 AST 19 U/L (15-37) 03/25/20 23:00 ALT 21 U/L (13-61) 03/25/20 23:00 Alkaline Phosphatase 86 U/L (45-117) 03/25/20 23:00 Creatine Kinase 61 U/L (26-308) 03/25/20 23:00 Troponin I < 0.02 ng/ml (0.00-0.05) 03/25/20 23:00 Total Protein 8.0 g/dl (6.4-8.2) 03/25/20 23:00 Albumin 3.9 g/dl (3.4-5.0) 03/25/20 23:00 03/26/20 01:54 CT head negative for acute intracranial pathology. CT neck negative for acute fracture or subluxation. 03/26/20 04:52 Pt reassessed. Alert and oriented. Ambulating around ED without any pain and with a steady gait. No nystagmus. Speaking in full sentences without slurred speech. Clinically safe for discharge home. Pt counseling on substance use disorder and resources provided at the bedside. Plan to d/c home with PCP f/u. All questions answered. Return precautions given. Pt verbalized understanding and agreement with plan. Discharge - Discharge Information Problems reviewed: Yes Clinical Impression/Diagnosis: Heroin use Fall Qualifiers: Encounter type: initial encounter Qualified Code(s): W19.XXXA - Unspecified fall, initial encounter Condition: Stable Disposition: HOME - Admission No - Follow up/Referral Referrals: [facility] [place] [place] [Provider Group] - Patient Discharge Instructions Patient Printed Discharge Instructions: DI for Substance Use Disorder Additional Instructions: Please make a follow up appointment with your primary care doctor (referral provided here). Please discuss your drug use with your primary care physician. If you experience any new, worsening, or concerning symptoms, including difficulty breathing, fatigue, lethargy, chest pain, dizziness, weakness, numbness, tingling, or any other concerns, please return to the emergency department. - Post Discharge Activity
--- NOTE | 2020-03-25 23:39 | PDOC ---
Documentation entered by Pablo Whitney SCRIBE, acting as scribe for Susie Rojo MD. Susie Rojo MD: This documentation has been prepared by the Prabhakar nichols Angel, SCRIBE, under my direction and personally reviewed by me in its entirety. I confirm that the documentation accurately reflects all work, treatment, procedures, and medical decision making performed by me. Attending Attestation - Resident Resident Name: Daniel Navarro - ED Attending Attestation I have performed the following: I have examined & evaluated the patient, The case was reviewed & discussed with the resident, I agree w/resident's findings & plan, Exceptions are as noted - HPI HPI: 03/25/20 23:25 The patient is a 24 year old male who presents to the ED BIBA after overdosing on heroin and falling over, hitting a fan. The patient has multiple face abrasions which he states are old. The patient is awake and conversive. The patient does take Suboxone but admits to using heroin, marijuana and smoking half a pack of cigarettes a day. Patient denies SI/HI. - Physicial Exam PE: 03/25/20 23:27 thin 24 yo male appearing lethargy but awakes when spoken to and responds to q uestions lungs cta b/l Abdomen is flat cvs Tachycardic Multiple face abrasions extremities no deformities 03/25/20 23:35 - Medical Decision Making 03/25/20 23:48 pt on ekg monitor tech ,he is tachycardic in [address] scan head and c spine Discharge - Discharge Information Problems reviewed: Yes Clinical Impression/Diagnosis: Heroin use Fall Qualifiers: Encounter type: initial encounter Qualified Code(s): W19.XXXA - Unspecified fall, initial encounter Condition: Stable Disposition: HOME - Follow up/Referral Referrals: [facility] [place] [facility] [place] [Provider Group] - Patient Discharge Instructions Patient Printed Discharge Instructions: DI for Substance Use Disorder Additional Instructions: Please make a follow up appointment with your primary care doctor (referral provided here). Please discuss your drug use with your primary care physician. If you experience any new, worsening, or concerning symptoms, including difficulty breathing, fatigue, lethargy, chest pain, dizziness, weakness, numbness, tingling, or any other concerns, please return to the emergency department. - Post Discharge Activity
[2020-03-25 23:46] LABS: BASO % 0.6 % (0-2.0); EOS % 0.1 % (0-4.5); HEMATOCRIT 37.1 % (35.4-49); HEMOGLOBIN 12.4 GM/dL (11.7-16.9); LYMPH % 9.7 % (8-40); MCH 28.7 pg (25.7-33.7); MCHC 33.5 g/dl (32.0-35.9); MEAN CELL VOLUME 85.5 fl (80-96); MEAN PLT VOLUME 7.6 fl (7.5-11.1); MONO % 5.8 % (3.8-10.2); NEUT % 83.8 % (42.8-82.8); PLATELET COUNT 312 K/MM3 (134-434); RBC 4.34 M/mm3 (4.00-5.60); RDW 13.6 % (11.9-15.9); WHITE BLOOD COUNT 12.1 K/mm3 (4.0-10.0)
[2020-03-25 23:57] LABS: INR 1.05 (0.83-1.09); PROTHROMBIN TIME (PATIENT) 12.4 SEC (9.7-13.0)
[2020-03-25 23:59] LABS: ACTIVATED PTT 33.6 SECONDS (25.2-36.5)
[2020-03-26] MEDS ORDERED: NALOXONE HCL 0.4 MG/ML VIAL ONE (00:07)
[2020-03-26] MEDS ORDERED: NALOXONE HCL 0.4 MG/ML VIAL IVPUSH ONE (00:10)
[2020-03-26] MEDS ORDERED: SODIUM CHLORIDE 0.9% 500 ML INFUS.BAG IV ONE (00:18)
[2020-03-26 00:25] LABS: ALBUMIN 3.9 g/dl (3.4-5.0); ALK PHOS 86 U/L (45-117); ANION GAP 5 MMOL/L (8-16); BILIRUBIN,TOTAL 0.4 mg/dL (0.2-1); BLOOD UREA NITROGEN 14.6 mg/dL (7-18); CALCIUM 8.9 mg/dL (8.5-10.1); CHLORIDE 103 mmol/L (98-107); CO2 31 mmol/L (21-32); CREATININE 1.1 mg/dL (0.55-1.3); GLUCOSE,RANDOM 105 mg/dL (74-106); POTASSIUM 4.2 mmol/L (3.5-5.1); SGOT/AST 19 U/L (15-37); SGPT/ALT 21 U/L (13-61); SODIUM 139 mmol/L (136-145)
[2020-03-26 05:12] VITALS: BP 127/76; PULSE 118; TEMP 98.1
--- NOTE | 2020-03-26 09:03 | EKG ---
Test Reason : Blood Pressure : / mmHG Vent. Rate : 138 BPM Atrial Rate : 138 BPM P-R Int : 148 ms QRS Dur : 090 ms QT Int : 286 ms P-R-T Axes : 076 117 065 degrees QTc Int : 433 ms SINUS TACHYCARDIA RIGHT AXIS DEVIATION POSSIBLE RIGHT VENTRICULAR HYPERTROPHY ABNORMAL ECG WHEN COMPARED WITH ECG OF 19-NOV-2018 14:04, VENT. RATE HAS INCREASED BY 73 BPM Confirmed by MD ABEL, SHANELL ([id number]) on 03/26/2020 9:03:08 AM Referred By: Confirmed By:SHANELL ROMAN MD
== END 2020-03-26 05:12 | disposition home or self-care (01) ==
LOC: JER 22:50
PROC: 3E033GC Introduction of Other Therapeutic Substance into Peripheral Vein, Percutaneous Approach (ICD-10-PCS; principal; 2020-03-25)
DX: F11.10 Opioid abuse, uncomplicated (principal)
CPT/HCPCS: 36415; 70450-TC; 72125-TC; 80053; 82550; 84484; 85025; 85610; 85730; 93005; 93010; 99285-25